=== PATIENT | female | born 1945 | race Caucasian/White ===

== ENCOUNTER 2021-01-28 20:45 | Emergency (ER) | payer MEDICARE, OTHER ==
--- NOTE | 2021-01-28 21:11 | EDM.PDOC ---
ED HPI GENERAL MEDICAL PROBLEM - General Chief Complaint: Gastrointestinal Problem Stated Complaint: NO BM FOR 1WK Time Seen by Provider: 01/28/21 20:55 Source of Information: Reports: Patient, Old Records, RN History Limitations: Reports: No Limitations - History of Present Illness INITIAL COMMENTS - FREE TEXT/NARRATIVE: 75 yo female presents concerned about constipation. She has not had BM in a week. No nausea or vomiting. Has tried several things at home without success. Feels bloated with pressure in her abdomen. Appetite is decreased. Recently had a spinal stimulator placed and then removed as it didn't help her very much. Onset: Gradual Onset Date: 01/21/21 Duration: Week(s): (1), Getting Worse Location: Reports: Abdomen Quality: Reports: Pressure (mild) Severity: Mild Improves with: Reports: None Worsens with: Reports: Other (time) Context: Reports: Other (See HPI) Associated Symptoms: Reports: No Other Symptoms. Denies: Fever/Chills, Nausea/Vomiting Treatments FEED ADVISER: Reports: Other (see below) (enema, rectal supp) Lower Abdomen Pain Score (Numeric/FACES): 4 - Related Data Allergies Allergy/AdvReac Type Severity Reaction Status Date / Time Sulfa (Sulfonamide Allergy Intermediate Hives Verified 01/28/21 20:53 Antibiotics) acetaminophen [From Percocet] Allergy Nausea and Verified 01/28/21 20:53 Vomiting adhesive Allergy Blisters Verified 01/28/21 20:53 oxycodone HCl [From Percocet] Allergy Nausea and Verified 01/28/21 20:53 Vomiting tramadol Allergy Nausea and Verified 01/28/21 20:53 Vomiting Home Meds: Home Meds Aspirin [Halfprin] 81 mg PO DAILY 01/28/21 [History] Bimatoprost [LUMIGAN 0.01% Ophth Soln] 2.5 ml EYEBOTH DAILY 01/28/21 [History] Biotin/Calcium Carbonate [Biotin 800 MCG] 1 each PO DAILY 01/28/21 [History] Calcium Carbonate/Vitamin D3 [Calcium Carbonate/Vitamin D 600 MG-200 Unit] 1 tab PO DAILY 01/28/21 [History] Latanoprost/Pf [Latanoprost 0.005% Eye Drop] 7.5 ml OP DAILY 01/28/21 [History] Levothyroxine 112 mcg PO ACBREAKFAST 01/28/21 [History] Multivitamin 1 each PO DAILY 01/28/21 [History] atorvaSTATin [Lipitor] 40 mg PO BEDTIME 01/28/21 [History] lisinopriL [Lisinopril] 10 mg PO DAILY 01/28/21 [History] Past Medical History HEENT History: Reports: Glaucoma, Impaired Vision Cardiovascular History: Reports: High Cholesterol, Hypertension WELLNESS GUIDE History: Reports: Fibroids, Musculoskeletal History: Reports: Back Pain, Chronic Neurological History: Reports: TIA 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 Endocrine/Metabolic History: Reports: Hypothyroidism Other Oncologic History: skin ca - Infectious Disease History Infectious Disease History: Reports: Chicken Pox, Measles, Mumps - Past Surgical History Female Surgical History: Reports: Hysterectomy Neurological Surgical History: Reports: Lumbar Spine, Spinal Fusion Other Musculoskeletal Surgeries/Procedures:: spinal fusion Social & Family History - Tobacco Use Tobacco Use Status *Q: Never Tobacco User - Caffeine Use Caffeine Use: Reports: None - Recreational Drug Use Recreational Drug Use: No ED ROS GENERAL - Review of Systems Review Of Systems: See Below Constitutional: Reports: No Symptoms HEENT: Reports: No Symptoms Respiratory: Reports: No Symptoms Cardiovascular: Reports: No Symptoms GI/Abdominal: Reports: Abdominal Pain (mild diffuse pressure), Constipation, Decreased Appetite, Distension (mild), Flatus. Denies: Black Stool, Bloody Stool, Diarrhea, Hematemesis, Hematochezia, Melena, Nausea, Vomiting : Reports: No Symptoms Musculoskeletal: Reports: No Symptoms Skin: Reports: No Symptoms Neurological: Reports: Other (chronic pain in both legs) ED EXAM, GI/ABD - Physical Exam Exam: See Below Exam Limited By: No Limitations General Appearance: Alert, WD/WN, No Apparent Distress Eyes: Bilateral: Normal Appearance Ears: Normal External Exam, Normal Canal, Hearing Grossly Normal Nose: Normal Inspection, No Blood Throat/Mouth: Normal Inspection, Normal Lips, Normal Oropharynx, Normal Voice, No Airway Compromise Head: Atraumatic, Normocephalic Neck: Normal Inspection Respiratory/Chest: No Respiratory Distress, Lungs Clear, Normal Breath Sounds, No Accessory Muscle Use Cardiovascular: Regular Rate, Rhythm, No Edema GI/Abdominal Exam: Normal Bowel Sounds, Soft, Distended (mild distention), Tender (mild diffuse pressure). No: Non-Tender, No Distention, Guarding, Rigid, Rebound, Abnormal Bowel Sounds Back Exam: Normal Inspection Extremities: Normal Inspection, Normal Range of Motion, No Pedal Edema Neurological: Alert, Oriented, CN II-XII Intact, Normal Cognition, No Motor/Sensory Deficits Psychiatric: Normal Affect, Normal Mood Skin Exam: Warm, Dry, Intact, Normal Color, No Rash Course - Vital Signs Last Recorded V/S: Last Vital Signs Temp 36.3 C 01/28/21 21:07 Pulse 70 01/28/21 21:07 Resp 16 01/28/21 21:07 BP 167/74 H 01/28/21 22:45 Pulse Ox 98 01/28/21 21:07 - Orders/Labs/Meds Orders: Active Orders 24 hr Category Date Time Status Enema [RC] ASDIRECTED Care 01/28/21 21:31 Active Abdomen 2V AP Flat Upright [CR] Stat Exams 01/28/21 21:05 Taken Iopamidol [Isovue-300 (61%)] Med 01/28/21 22:34 Active 138 ml IV . DIRECTED PRN Sodium Chloride 0.9% [Normal Saline] 82 ml Med 01/28/21 22:45 Active IV ASDIRECTED Sodium Chloride 0.9% [Saline Flush] Med 01/28/21 22:25 Active 10 ml FLUSH ASDIRECTED PRN Saline Lock Insert [OM.PC] Routine Oth 01/28/21 22:25 Ordered Medication Orders Sodium Chloride (Normal Saline) 82 mls @ 3 mls/sec IV ASDIRECTED AIYANA Last Admin: 01/28/21 23:26 Dose: 3 mls/sec Documented by: CALIN Iopamidol (Iopamidol 612 Mg/Ml 150 Ml Bottle) 138 ml IV . DIRECTED PRN PRN Reason: RADIOLOGY EXAM Stop: 01/29/21 22:35 Last Admin: 01/28/21 23:25 Dose: 138 ml Documented by: CALIN Sodium Chloride (Sodium Chloride 0.9% 10 Ml Syringe) 10 ml FLUSH ASDIRECTED PRN PRN Reason: Keep Vein Open Last Admin: 01/28/21 23:40 Dose: 10 ml Documented by: Admin: 01/28/21 23:25 Dose: 10 ml Documented by: CALIN Labs: Laboratory Tests 01/28/21 01/28/21 Range/Units 22:42 22:42 WBC 7.9 (4.5-11.0) K/uL RBC 4.73 (3.30-5.50) M/uL Hgb 14.5 (12.0-15.0) g/dL Hct 42.8 (36.0-48.0) % MCV 91 (80-98) fL MCH 31 (27-31) pg MCHC 34 (32-36) % Plt Count 240 (150-400) K/uL Sodium 136 L (140-148) mmol/L Potassium 3.5 L (3.6-5.2) mmol/L Chloride 101 (100-108) mmol/L Carbon Dioxide 29 (21-32) mmol/L Anion Gap 9.5 (5.0-14.0) mmol/L BUN 24 H (7-18) mg/dL Creatinine 0.8 (0.6-1.0) mg/dL Est Cr Clr Drug Dosing 53.28 mL/min Estimated GFR (MDRD) > 60 (>60) Glucose 109 H (74-106) mg/dL Calcium 8.8 (8.5-10.1) mg/dL Meds: Medications Generic Name Dose Route Start Last Admin Trade Name Freq PRN Reason Stop Dose Admin Sodium Chloride 82 mls @ 3 mls/sec 01/28/21 22:45 01/28/21 23:26 Normal Saline IV 3 mls/sec ASDIRECTED AIYANA Administration Iopamidol 138 ml 01/28/21 22:34 01/28/21 23:25 Iopamidol 612 Mg/Ml 150 Ml Bottle IV 01/29/21 22:35 138 ml . DIRECTED PRN Administration RADIOLOGY EXAM Sodium Chloride 10 ml 01/28/21 22:25 01/28/21 23:40 Sodium Chloride 0.9% 10 Ml Syringe FLUSH 10 ml ASDIRECTED PRN Administration Keep Vein Open Discontinued Medications Generic Name Dose Route Start Last Admin Trade Name Freq PRN Reason Stop Dose Admin Lactated Ringer's 1,000 mls @ 1,000 mls/hr 01/28/21 23:14 01/28/21 23:40 Ringers, Lactated IV 01/29/21 00:13 1,000 mls/hr BOLUS ONE Administration Polyethylene Glycol 34 gm 01/29/21 00:21 01/29/21 00:40 Polyethylene Glycol 3350 Powder 17 Gm Packet PO 01/29/21 00:22 34 gm ONETIME ONE Administration Simethicone 160 mg 01/29/21 00:21 01/29/21 00:40 Simethicone 80 Mg Tab.Chew PO 01/29/21 00:22 160 mg ONETIME ONE Administration Sodium Chloride 10 ml 01/28/21 22:34 Sodium Chloride 0.9% 10 Ml Sdv FLUSH 01/28/21 22:35 ONETIME ONE - Radiology Interpretation Free Text/Narrative:: Flat/upright abdominal A-kzwk-tjttkysge stool CT abd/pelvis-IMPRESSION: Nothing seen to suggest constipation. Normal fecal burden in the: In the abdomen, with little fecal material in the sigmoid colon and rectum. CT of the abdomen shows mild cholelithiasis with no sign of acute cholecystitis. CT of the pelvis shows changes of hysterectomy. Please note that all CT scans at this facility use dose modulation, iterative reconstruction, and/or weight-based dosing when appropriate to reduce radiation dose to as low as reasonably achievable. Dictated by Cuong Rudolph MD @ 01/29/2021 12:14:03 AM ( - Re-Assessments/Exams Free Text/Narrative Re-Assessment/Exam: 01/28/21 22:25 No results with either an oil retention enema or a soap suds enema. Will get a CT scan of abd. Departure - Departure Time of Disposition: 01:04 Disposition: Home, Self-Care 01 Condition: Good Clinical Impression: Constipation Qualifiers: Constipation type: slow transit constipation Qualified Code(s): K59.01 - Slow transit constipation - Discharge Information *PRESCRIPTION DRUG MONITORING PROGRAM REVIEWED*: Not Applicable *COPY OF PRESCRIPTION DRUG MONITORING REPORT IN PATIENT MARISABEL: Not Applicable Instructions: Constipation, Adult, [id number] Referrals: PCP,None [Primary Care Provider] - Forms: ED Department Discharge Additional Instructions: Take a double dose of Miralax every 12 hrs until a good BM results. See your doctor for recheck this week ginny. Return for vomiting. Sepsis Event Note (ED) - Focused Exam Vital Signs: Vital Signs Temp Pulse Resp BP Pulse Ox 01/28/21 22:45 167/74 H 01/28/21 21:07 36.3 C 70 16 196/100 H 98 - My Orders Last 24 Hours: My Active Orders 01/28/21 21:05 Abdomen 2V AP Flat Upright [CR] Stat 01/28/21 21:31 Enema [RC] ASDIRECTED 01/28/21 22:25 Sodium Chloride 0.9% [Saline Flush] 10 ml FLUSH ASDIRECTED PRN Saline Lock Insert [OM.PC] Routine 01/28/21 22:34 Iopamidol [Isovue-300 (61%)] 138 ml IV . DIRECTED PRN 01/28/21 22:45 Sodium Chloride 0.9% [Normal Saline] 82 ml IV ASDIRECTED - Assessment/Plan Last 24 Hours: My Active Orders 01/28/21 21:05 Abdomen 2V AP Flat Upright [CR] Stat 01/28/21 21:31 Enema [RC] ASDIRECTED 01/28/21 22:25 Sodium Chloride 0.9% [Saline Flush] 10 ml FLUSH ASDIRECTED PRN Saline Lock Insert [OM.PC] Routine 01/28/21 22:34 Iopamidol [Isovue-300 (61%)] 138 ml IV . DIRECTED PRN 01/28/21 22:45 Sodium Chloride 0.9% [Normal Saline] 82 ml IV ASDIRECTED
[2021-01-28] MEDS ORDERED: Iopamidol 612 MG/ML 150 ML Bottle IV PRN (22:34)
[2021-01-28] MEDS ORDERED: Sodium Chloride 0.9% 10 ML SDV FLUSH ONE (22:34)
[2021-01-28] MEDS ORDERED: Lactated Ringers 1,000 ML IV ONE (23:14)
[2021-01-28] MEDS: Sodium Chloride 0.9% 10 ML Syringe FLUSH PRN ×2 (23:25→23:40)
--- NOTE | 2021-01-29 00:14 | CRLCT ---
For Patients: As a result of the 21st Century Cures Act, medical imaging exams and procedure reports are released immediately into your electronic medical record. You may view this report before your referring provider. If you have questions, please contact your health care provider. INDICATION: No bowel movements for 7 days despite multiple enemas. COMPARISON: None available TECHNIQUE: CT examination of the abdomen and pelvis was performed with the uneventful intravenous administration of 138 cc of Isovue-300 while 3 mm thick axial sections were obtained from the lung bases through the pubic symphysis. Oral contrast was not administered. Please note that all CT scans at this facility use dose modulation, iterative reconstruction, and/or weight-based dosing when appropriate to reduce radiation dose to as low as reasonably achievable. FINDINGS: There is a mild amount of fecal material in the colon in the abdomen, with normal fecal burden, not suggestive of constipation. There is little fecal material in the sigmoid colon and rectum. In the abdomen, the liver has a calcified granuloma in the superior falciform ligament region, of no clinical concern. The rest of the liver is normal in appearance. The spleen, pancreas, and adrenals are normal in appearance. The kidneys are normal in appearance. There is mild cholelithiasis, with a single tiny dependent calcified gallstone in the gallbladder. There is no sign of gallbladder wall thickening or pericholecystic fluid. The abdominal aorta is normal in caliber with no sign of dilatation. There is no sign of retroperitoneal mass or adenopathy. The stomach, loops of small bowel, and colon in the abdomen are normal in appearance. In the pelvis, the appendix is normal in appearance with no sign of inflammatory process. The loops of small bowel and colon in the pelvis are normal in appearance. The uterus is absent and the adnexal regions are normal in appearance. The urinary bladder is normal in appearance. There is no sign of pelvic or inguinal mass or adenopathy. There is no sign of free air or free fluid in the abdomen or pelvis. The lung bases are clear. There are changes of laminectomy and fusion extending from L3 through S1 with bilateral intrapedicular screws with vertical connecting rods. No sign of fracture or loosening of the fusion hardware. Anatomic alignment of the fused segments. There is prominence L1-2 and L2-3 disc degenerative disease. There is mild T12-L1 disc degenerative disease. IMPRESSION: Nothing seen to suggest constipation. Normal fecal burden in the: In the abdomen, with little fecal material in the sigmoid colon and rectum. CT of the abdomen shows mild cholelithiasis with no sign of acute cholecystitis. CT of the pelvis shows changes of hysterectomy. Please note that all CT scans at this facility use dose modulation, iterative reconstruction, and/or weight-based dosing when appropriate to reduce radiation dose to as low as reasonably achievable. Dictated by Cuong Rudolph MD @ 01/29/2021 12:14:03 AM (Electronically Signed)
[2021-01-29] MEDS ORDERED: Simethicone 80 MG Tab.Chew PO ONE (00:21)
[2021-01-29] MEDS ORDERED: Polyethylene Glycol 3350 Powder 17 GM Packet PO ONE (00:21)
--- NOTE | 2021-01-29 09:05 | CR ---
Abdomen 2V AP Flat Upright CLINICAL HISTORY: Constipation FINDINGS: No free air is identified. The small intestinal gas pattern is nonspecific. There is moderate fecal retention. There has been previous lumbar surgery IMPRESSION: Nonacute intestinal gas pattern Fecal retention
== END 2021-01-29 01:28 | disposition home or self-care (01) ==
LOC: JP.ED 20:45
DX: K59.01 Slow transit constipation (principal); E78.00 Pure hypercholesterolemia, unspecified; I10 Essential (primary) hypertension; E03.9 Hypothyroidism, unspecified; Z79.82 Long term (current) use of aspirin; Z79.899 Other long term (current) drug therapy; Z88.2 Allergy status to sulfonamides; Z88.5 Allergy status to narcotic agent
CPT/HCPCS: 36415; 74019; 74177; 80048; 85027; 99284; A9270; J7120; Q9967